=== PATIENT | female | born 1940 | race Caucasian/White ===

== ENCOUNTER 2016-12-19 07:28 | Inpatient (IN) | payer MEDICARE, BC ==
[~2016-12-19] VITALS: Ht 175.3 cm; Wt 62.5 kg
[~2016-12-19 07:28] MED LIST: AMLO10TA2 PO; ASPI-496 PO; ATOR20TA PO; CALCIUM PO; GABA300C10 PO; HYDR-3240 PO; HYDR-3307 PO; METH750T87 PO; METO25TA91 PO; MULT-516 PO; SIMV40TA3 PO; VITAMIN B PO; VITAMIN D PO
[2016-12-19 08:20] VITALS: BP 144/75
[2016-12-19] MEDS ORDERED: SODIUM CHLORIDE 0.45% 1,000 ML IV SCH ×3 (08:30→17:30)
[2016-12-19] MEDS ORDERED: LIDOCAINE 2%, 20ML ONE (09:17)
[2016-12-19] MEDS ORDERED: PROTAMINE SULFATE 10 MG/ML, 25ML ONE (09:27)
[2016-12-19] MEDS ORDERED: HEPARIN 1,000 UNITS/ML, 10ML ONE (09:28)
[2016-12-19] MEDS ORDERED: FLUMAZENIL 0.1 MG/1 ML, 5ML ONE (09:28)
[2016-12-19] MEDS ORDERED: NITROGLYCERIN 5 MG/ML, 10ML ONE (09:28)
[2016-12-19] MEDS ORDERED: FENTANYL PF 100 MCG/2ML ONE (09:28)
[2016-12-19] MEDS ORDERED: MIDAZOLAM 1 MG/ML, 5ML ONE (09:28)
[2016-12-19] MEDS ORDERED: NALOXONE 1 MG/ML, 2ML ONE (09:28)
[2016-12-19 10:35] VITALS: BP 123/63
[2016-12-19] MEDS: POTASSIUM CHLORIDE 20 MEQ in LACTATED RINGERS 1,000 ML IV SCH ×2 (12:36→23:40)
[2016-12-19 14:20] VITALS: BP 136/74
[2016-12-19 20:14] VITALS: BP 149/74
[2016-12-19] MEDS: ATORVASTATIN 10 MG TABLET PO SCH (21:52)
[2016-12-19] MEDS: GABAPENTIN 300 MG CAPSULE PO SCH (21:52)
[2016-12-19 23:40] VITALS: BP 133/73
[2016-12-20 03:18] VITALS: BP 162/65
[2016-12-20] MEDS: METOPROLOL SUCCINATE 25 MG TAB.ER.24H PO SCH (05:29)
[2016-12-20 07:48] VITALS: BP 146/70
[2016-12-20] MEDS: AMLODIPINE 5 MG TABLET PO SCH (07:58)
[2016-12-20] MEDS: MULTIVITAMIN 1 TABLET PO SCH (07:58)
[2016-12-20] MEDS: CALCIUM CARBONATE 500 MG TABLET PO SCH (07:58)
[2016-12-20] MEDS: GABAPENTIN 300 MG CAPSULE PO SCH ×2 (07:58→21:16)
[2016-12-20] MEDS ORDERED: PROTAMINE SULFATE 10 MG/ML, 5ML ONE ×2 (12:48→12:49)
[2016-12-20] MEDS ORDERED: THROMBIN 20,000 UNIT VIAL TP ONE (12:49)
[2016-12-20] MEDS ORDERED: BACITRACIN 50,000 UNIT ONE (12:49)
[2016-12-20] MEDS ORDERED: HEPARIN 1,000 UNITS/ML, 10ML ONE (12:49)
[2016-12-20] MEDS ORDERED: MIDAZOLAM 1 MG/ML, 2ML ONE (13:27)
[2016-12-20] MEDS ORDERED: FENTANYL PF 250 MCG/5ML ONE (13:27)
[2016-12-20] MEDS ORDERED: NEOSTIGMINE 1 MG/ML, 10ML ONE (13:37)
[2016-12-20] MEDS ORDERED: CEFAZOLIN 1,000 MG ONE (13:37)
[2016-12-20] MEDS ORDERED: GLYCOPYRROLATE 0.2MG/1ML ONE (13:37)
[2016-12-20] MEDS ORDERED: SUCCINYLCHOLINE 20 MG/ML, 10ML ONE (13:37)
[2016-12-20] MEDS ORDERED: ROCURONIUM 10 MG/ML ONE (13:37)
[2016-12-20] MEDS ORDERED: ONDANSETRON 2MG/ML, 2ML ONE ×2 (13:37→16:25)
[2016-12-20] MEDS ORDERED: PROPOFOL 10 MG/ML, 20ML ONE (13:37)
[2016-12-20] MEDS ORDERED: hydrALAzine 20 MG/ML, 1ML ONE (13:37)
[2016-12-20] MEDS ORDERED: DEXAMETHASONE 4 MG/ML, 1ML ONE (13:37)
[2016-12-20] MEDS ORDERED: HYDROmorphone 1 MG/ML, 1ML IV PRN (16:00)
[2016-12-20] MEDS ORDERED: METOPROLOL 1 MG/ML, 5ML IV PRN (16:00)
[2016-12-20] MEDS ORDERED: ONDANSETRON 2MG/ML, 2ML IVPush PRN (16:00)
[2016-12-20] MEDS ORDERED: HYDROcodone/APAP 7.5-325MG/15ML UDC PO PRN (16:00)
[2016-12-20] MEDS ORDERED: MIDAZOLAM 1 MG/ML, 2ML IV PRN (16:00)
[2016-12-20] MEDS ORDERED: ACETAMINOPHEN 325 MG TABLET PO PRN (16:00)
[2016-12-20] MEDS ORDERED: LABETALOL 5MG/ML, 20ML IV PRN (16:00)
[2016-12-20] MEDS ORDERED: EPHEDRINE 50 MG/ML, 1ML IVPush PRN (16:00)
[2016-12-20] MEDS ORDERED: OXYcodone 5 MG/5 ML ORAL.SOL UDC PO PRN (16:00)
[2016-12-20] MEDS ORDERED: hydrALAzine 20 MG/ML, 1ML IV PRN (16:00)
[2016-12-20] MEDS ORDERED: MEPERIDINE/PF 25MG/0.5ML IVPush PRN (16:00)
[2016-12-20] MEDS ORDERED: PROMETHAZINE 25 MG/ML, 1ML IV PRN (16:00)
[2016-12-20] MEDS ORDERED: ALBUTEROL SULFATE 2.5 MG/3 ML NPPB PRN (16:00)
[2016-12-20] MEDS ORDERED: FENTANYL PF 100 MCG/2ML ONE (16:25)
[2016-12-20] MEDS ORDERED: OXYcodone 5 MG/5 ML ORAL.SOL UDC ONE (16:25)
[2016-12-20] MEDS: FENTANYL PF 100 MCG/2ML IV PRN ×2 (16:40→16:50)
[2016-12-20] MEDS ORDERED: HYDROcodone/APAP 5/325 TABLET PO PRN (17:30)
[2016-12-20] MEDS ORDERED: morphine SULFATE 10 MG/ML, 1ML IV PRN (17:30)
[2016-12-20] MEDS: POTASSIUM CHLORIDE 10 MEQ in D5%-0.45% NACL 1,000 ML IV SCH (18:01)
[2016-12-20 19:05] VITALS: BP 127/66
[2016-12-20] MEDS: SODIUM CHLORIDE FLUSH 10ML SYR IVF SCH (21:00)
[2016-12-20] MEDS: ATORVASTATIN 10 MG TABLET PO SCH (21:16)
[2016-12-20] MEDS: CEFAZOLIN PMX 1GM/50ML 50 ML IVPB SCH (21:23)
[2016-12-20 23:42] VITALS: BP 121/67
[2016-12-21] MEDS: POTASSIUM CHLORIDE 10 MEQ in D5%-0.45% NACL 1,000 ML IV SCH (03:33)
[2016-12-21 03:54] VITALS: BP 136/61
[2016-12-21] MEDS: CEFAZOLIN PMX 1GM/50ML 50 ML IVPB SCH (05:25)
[2016-12-21] MEDS: METOPROLOL SUCCINATE 25 MG TAB.ER.24H PO SCH (05:29)
[2016-12-21] MEDS ORDERED: ENOXAPARIN 40 MG/0.4 ML SQ SCH (06:00)
[2016-12-21] MEDS ORDERED: RIVA10TA PO (07:46)
[2016-12-21] MEDS ORDERED: HYDR-3240 PO (07:48)
[2016-12-21] MEDS: MULTIVITAMIN 1 TABLET PO SCH (08:00)
[2016-12-21] MEDS: AMLODIPINE 5 MG TABLET PO SCH (08:00)
[2016-12-21] MEDS: CALCIUM CARBONATE 500 MG TABLET PO SCH (08:00)
[2016-12-21] MEDS: GABAPENTIN 300 MG CAPSULE PO SCH (08:00)
[2016-12-21] MEDS: SODIUM CHLORIDE FLUSH 10ML SYR IVF SCH (08:00)
[2016-12-21 08:28] VITALS: BP 132/66
== END 2016-12-21 08:50 | disposition home or self-care (01) | DRG 271 ==
LOC: RAD 07:28 → 4NOR 10:31 → OUT 22:54 → 4NOR 22:54
PROVIDERS: ADMIT Surgery; ATTEND Surgery
PROC: 041J0JQ Bypass Left External Iliac Artery to Lower Extremity Artery with Synthetic Substitute, Open Approach (ICD-10-PCS; principal; 2016-12-19)
PROC: B4101ZZ Fluoroscopy of Abdominal Aorta using Low Osmolar Contrast (ICD-10-PCS; 2016-12-19)
PROC: B41C1ZZ Fluoroscopy of Pelvic Arteries using Low Osmolar Contrast (ICD-10-PCS; 2016-12-19)
PROC: B41G1ZZ Fluoroscopy of Left Lower Extremity Arteries using Low Osmolar Contrast (ICD-10-PCS; 2016-12-19)
DX: T82.858A Stenosis of other vascular prosthetic devices, implants and grafts, initial encounter (principal); E44.1 Mild protein-calorie malnutrition; I70.212 Atherosclerosis of native arteries of extremities with intermittent claudication, left leg; E78.5 Hyperlipidemia, unspecified; I10 Essential (primary) hypertension; Z87.891 Personal history of nicotine dependence; Z88.6 Allergy status to analgesic agent; Y83.2 Surgical operation with anastomosis, bypass or graft as the cause of abnormal reaction of the patient, or of later complication, without mention of misadventure at the time of the procedure; Y92.89 Other specified places as the place of occurrence of the external cause
CPT/HCPCS: 36217; 75710; 99156; 99157; J0690; J1100; J1644; J1650; J2250; J2405; J2704; J2710; J2720; J3010; J3480; J3490; C1751; C1768; C1769; C1894; J0330; J0360; J2310; J7120